=== PATIENT | female | born 1975 | race Caucasian/White ===

== ENCOUNTER 2017-09-05 12:54 | Emergency (ER) | payer BC, OTHER ==
[2017-09-05] MEDS: ONDANSETRON 4 MG INJ IV (15:21)
[2017-09-05] MEDS: SOD CHLORIDE 0.9% 1,000 ML IV (15:21)
[2017-09-05] MEDS: morphine 4 MG/ML VIAL IV (15:22)
[2017-09-05 15:32] LABS: ADD MAN DIFF? NO
[2017-09-05 15:41] LABS: WHITE BLOOD COUNT 7.3 10^3/ul (4.8-10.8)
[2017-09-05 15:41] LABS: BASOPHILS % 0.3 % (0.0-2.0); EOSINOPHILS # 0.2 10^3/ul (0.0-0.5); HEMATOCRIT 41.4 % (37.0-47.0); HEMOGLOBIN 14.1 g/dl (12.0-16.0); LYMPHOCYTES # 3.6 10^3/ul (0.8-2.9); MEAN CORPUSCULAR HEMOGLOBIN 31.6 pg (29.0-33.0); MEAN CORPUSCULAR HGB CONC 34.1 g/dl (32.0-37.0); MEAN CORPUSCULAR VOLUME 92.8 fl (82.0-101.0); MEAN PLATELET VOLUME 10.8 fl (7.4-10.4); MONOCYTE # 0.5 10^3/ul (0.3-0.9); MONOCYTES % 6.8 % (0.0-11.0); NEUTROPHILS % 40.6 % (39.0-77.0); PLATELET COUNT 258 10^3/UL (140-415); RED BLOOD COUNT 4.46 10^6/ul (4.20-5.40); RED CELL DISTRIBUTION WIDTH 13.3 % (11.5-14.5)
[2017-09-05 15:51] LABS: ALANINE AMINOTRANSFERASE 73 IU/L (13-69); ALBUMIN 4.9 g/dl (3.3-4.9); ALKALINE PHOSPHATASE 139 IU/L (42-121); ANION GAP 29 (8-16); ASPARTATE AMINO TRANSFERASE 109 IU/L (15-46); BILIRUBIN,INDIRECT 0.3 mg/dl (0-1.1); BILIRUBIN,TOTAL 0.3 mg/dl (0.2-1.3); BLOOD UREA NITROGEN 30 mg/dl (7-20); CARBON DIOXIDE 10 mmol/L (21-31); CHLORIDE 108 mmol/L (97-110); CREATININE 1.39 mg/dl (0.44-1.00); GLUCOSE 100 mg/dl (70-220); LIPASE 60 U/L (23-300); SODIUM 142 mmol/L (135-144)
[2017-09-05 16:07] LABS: TROPONIN-I < 0.012 ng/ml (0.00-0.12)
[2017-09-05 16:12] LABS: ADD UMIC YES; UR ASCORBIC ACID NEGATIVE (NEGATIVE); UR BILIRUBIN (Dip) 1+ mg/dL (NEGATIVE); UR BLOOD (Dip) 2+ mg/dL (NEGATIVE); UR CLARITY CLOUDY (CLEAR); UR COLOR AMBER (YELLOW); UR GLUCOSE (Dip) NEGATIVE (NEGATIVE); UR GRANULAR CAST FEW /HPF (NONE SEEN); UR KETONES (Dip) NEGATIVE (NEGATIVE); UR LEUKOCYTE ESTERASE (Dip) TRACE Leu/ul (NEGATIVE); UR MUCUS FEW /HPF (NONE SEEN); UR NITRITE (Dip) NEGATIVE (NEGATIVE); UR RBC 7 /HPF (0-5); UR SPECIFIC GRAVITY (Dip) 1.027 (1.003-1.030); UR SQUAMOUS EPITHELIAL CELL MODERATE /HPF (FEW); UR TOTAL PROTEIN (Dip) 3+ mg/dl (NEGATIVE); UR UROBILINOGEN (Dip) NEGATIVE (NEGATIVE); UR WBC 13 /HPF (0-5)
[2017-09-05 16:50] LABS: ALBUMIN/GLOBULIN RATIO 0.68; TOTAL PROTEIN 12.1 g/dl (6.1-8.1)
== END 2017-09-05 19:28 | disposition home or self-care (01) ==
LOC: FTE 12:54
DX: R11.2 Nausea with vomiting, unspecified (principal); R19.7 Diarrhea, unspecified; R94.5 Abnormal results of liver function studies; R79.89 Other specified abnormal findings of blood chemistry
CPT/HCPCS: 36415; 74176; 80053; 81001; 83690; 84484; 85025; 96374; 96375; 99285-25